=== PATIENT | male | born 1995 | race African-American/Black ===

== ENCOUNTER 2017-07-10 16:38 | Emergency (ER) | payer OTHER ==
[~2017-07-10] VITALS: Ht 162.6 cm; Wt 63.5 kg
[2017-07-10 16:50] VITALS: BP 150/70
[2017-07-10] MEDS ORDERED: DIPHTH,PERTUSS(ACELL),TET TOX 0.5 ML DISP.SYRIN. VAX IM ONE (17:15)
[2017-07-10] MEDS ORDERED: SULF1TAB24 PO (17:36)
[2017-07-10] MEDS ORDERED: ACET-704 PO (17:36)
--- NOTE | 2017-07-10 17:36 | PHYS DOC ---
Past Medical History Past Medical History: No Pertinent History Past Surgical History: No Surgical History Alcohol Use: Occasionally Drug Use: Marijuana Adult General Chief Complaint Chief Complaint: ABSCESS HPI HPI Patient is a 22 year old male who presents with right buttock abscess that began yesterday. Patient denies any fever. Denies any drainage from the area. Review of Systems Review of Systems Constitutional: see history of present illness Musculoskeletal: Denies back pain or joint pain [] Integument: right buttock abscess Neurologic: Denies headache, focal weakness or sensory changes [] Current Medications Current Medications Current Medications Medications (Trade) Dose Ordered Sig/Teena Start Time Stop Time Status Last Admin Dose Admin Diphtheria/ Tetanus/Acell Pertussis (Boostrix) 0.5 ml ONCE ONCE 07/10/17 17:15 07/10/17 17:16 DC 07/10/17 17:18 0.5 ML Allergies Allergies Allergies Coded Allergies Type Severity Reaction Last Updated Verified No Known Drug Allergies 07/10/17 No Physical Exam Physical Exam Constitutional: Well developed, well nourished, no acute distress, non-toxic appearance. [] Skin: Warm, dry, right inner buttock with none indurated area approximately 1 x 1 cm. The area has no fluctuance. The area is erythematous and TTP, the area is warm to touch. Back: No tenderness, no CVA tenderness. [] Extremities: No tenderness, no cyanosis, no clubbing, ROM intact, no edema. [] Neurologic: Alert and oriented X 3, normal motor function, normal sensory function, no focal deficits noted. [] Psychologic: Affect normal, judgement normal, mood normal. [] Current Patient Data Vital Signs Vital Signs Date Time Temp Pulse Resp B/P (MAP) Pulse Ox O2 Delivery O2 Flow Rate FiO2 07/10/17 16:50 99.8 82 20 98 Room Air 99.8 EKG EKG [] Radiology/Procedures Radiology/Procedures [] Course & Med Decision Making Course & Med Decision Making Pertinent Labs and Imaging studies reviewed. (See chart for details) Patient has an abscess to the right buttocks that is not ready to be drained. Discharged Bactrim for 10 days. Discharged Bactroban. Follow-up with PCP in 1-2 weeks. Warm compresses recommended to the area. Tetanus was updated. Dragon Disclaimer Dragon Disclaimer This electronic medical record was generated, in whole or in part, using a voice recognition dictation system. Departure Departure Impression: Primary Impression: Abscess of right buttock Disposition: 01 HOME, SELF-CARE Condition: STABLE Referrals: NO PCP (PCP) FÁTIMA FOLEY MD follow up in one week Patient Instructions: Abscess, Care After Additional Instructions: You were seen for an abscess on your right buttock. Keep the area clean and dry. Apply warm compresses to the area twice a day. Complete the prescribed antibiotics. Follow up with the provided doctor or your own doctor in 1-2 weeks. Please return to the emergency room if symptoms worsen. Scripts Mupirocin Calcium (BACTROBAN CREAM) 15 Gm Cream..g. 1 GARRISON TP TID, #30 GM Prov: RADHA MEDINA APRN 07/10/17 Acetaminophen With Codeine (TYLENOL WITH CODEINE #3 TABLET) 1 Each Tablet 1 TAB PO PRN Q6HRS Y for PAIN, #30 TAB Prov: RADHA MEDINA APRN 07/10/17 Sulfamethoxazole/Trimethoprim (BACTRIM DS TABLET) 1 Each Tablet 1 TAB PO BID, #20 TAB Prov: RADHA MEDINA APRN 07/10/17 RADHA MEDINA APRN Jul 10, 2017 17:36
[2017-07-10] MEDS ORDERED: MUPI15CR TP (17:38)
== END 2017-07-10 17:43 | disposition home or self-care (01) ==
LOC: ER 16:38
DX: L02.31 Cutaneous abscess of buttock (principal)
CPT/HCPCS: 90471; 90715; 99283-25

== ENCOUNTER 2020-10-29 01:32 | Emergency (ER) | payer SELFPAY ==
[~2020-10-29] VITALS: Ht 165.1 cm; Wt 90.0 kg
[~2020-10-29 01:32] MED LIST: ACET-704 PO; MUPI15CR TP; SULF1TAB24 PO
[2020-10-29] MEDS ORDERED: HALOPERIDOL LACTATE 5 MG/ML VIAL. IVP ONE (02:30)
[2020-10-29] MEDS ORDERED: diphenhydrAMINE 50 MG/ML VIAL IVP ONE (02:30)
[2020-10-29] MEDS ORDERED: GELATIN SPONGE SIZE 12-7MM SPONGE. ONE (02:36)
[2020-10-29 03:56] VITALS: BP 104/50
--- NOTE | 2020-10-29 05:10 | ED.ADGEN ---
Past Medical History Past Medical History: No Pertinent History Past Surgical History: No Surgical History Smoking Status: Current Every Day Smoker Alcohol Use: Heavy Drug Use: Marijuana General Adult EDM: Chief Complaint: LACERATION/AVULSION HPI: HPI: Patient is a 25-year-old male coming in for a laceration to his left wrist after punching a glass window. Patient is combative. Per mom patient is been drinking but denies any drug use. Patient is bleeding heavily and being combative with staff. Patient needed to be restrained and sedated to facilitate his stabilization and safety of staff. Review of Systems: Review of Systems: Constitutional: Denies fever or chills. [] Eyes: Denies change in visual acuity. [] HENT: Denies nasal congestion or sore throat. [] Respiratory: Denies cough or shortness of breath. [] Cardiovascular: Denies chest pain or edema. [] GI: Denies abdominal pain, nausea, vomiting, bloody stools or diarrhea. [] : Denies dysuria. [] Musculoskeletal: Denies back pain or joint pain. [] Integument: Denies rash. [] Neurologic: Denies headache, focal weakness or sensory changes. [] Endocrine: Denies polyuria or polydipsia. [] Lymphatic: Denies swollen glands. [] Psychiatric: Denies depression or anxiety. [] Current Medications: Current Medications Medications (Trade) Dose Ordered Sig/Teena Start Time Stop Time Status Last Admin Dose Admin Diphenhydramine HCl (Benadryl) 50 mg 1X ONCE 10/29/20 02:30 10/29/20 02:31 DC 10/29/20 02:13 50 MG Gelatin (Gelfoam Size 12-7mm) 1 each STK-MED ONCE 10/29/20 02:36 10/29/20 02:37 DC Haloperidol Lactate (Haldol Inj) 5 mg 1X ONCE 10/29/20 02:30 10/29/20 02:31 DC 10/29/20 02:13 5 MG Lorazepam (Ativan Inj) 2 mg 1X ONCE 10/29/20 02:30 10/29/20 02:31 DC 10/29/20 02:13 2 MG Allergies: Allergies: Allergies Coded Allergies Type Severity Reaction Last Updated Verified No Known Drug Allergies 07/10/17 No Physical Exam: PE: Constitutional: Well developed, well nourished, no acute distress, non-toxic appearance. [] HENT: Normocephalic, atraumatic, bilateral external ears normal, oropharynx moist, no oral exudates, nose normal. [] Eyes: PERRLA, EOMI, conjunctiva normal, no discharge. [] Neck: Normal range of motion, no tenderness, supple, no stridor. [] Cardiovascular:Heart rate regular rhythm, no murmur [] Lungs & Thorax: Bilateral breath sounds clear to auscultation [] Abdomen: Bowel sounds normal, soft, no tenderness, no masses, no pulsatile masses. [] Skin: Warm, dry, no erythema, no rash. [] Back: No tenderness, no CVA tenderness. [] Extremities: No tenderness, no cyanosis, no clubbing, ROM intact, no edema. [] Neurologic: Alert and oriented X 3, normal motor function, normal sensory function, no focal deficits noted. [] Psychologic: Affect normal, judgement normal, mood normal. [] Current Patient Data: Vital Signs: Vital Signs Date Time Temp Pulse Resp B/P (MAP) Pulse Ox O2 Delivery O2 Flow Rate FiO2 10/29/20 01:40 98.1 110 16 146/93 (110) 98 Room Air 98.1 EKG: EKG: [] Heart Score: Risk Factors: Risk Factors: DM, Current or recent (<one month) smoker, HTN, HLP, family history of CAD, obesity. Risk Scores: Score 0 - 3: 2.5% MACE over next 6 weeks - Discharge Home Score 4 - 6: 20.3% MACE over next 6 weeks - Admit for Clinical Observation Score 7 - 10: 72.7% MACE over next 6 weeks - Early Invasive Strategies Radiology/Procedures: Radiology/Procedures: Indication: 6 cm wound left wrist and small superficial 1 cm wound to left forearm Procedure: The patient was placed in the appropriate position and anesthesia around the was not placed Area was then cleaned and irrigated thoroughly with normal saline.]. The laceration was stapled with 14 mario. No complications and hemostasis achieved the wound area was then dressed with nonadherent dressing. Total repaired wound length: 7 cm. Other Items: Entire depth of wound probed, and subcutaneous tissue approximately 1 cm partial fascia visible but does not appear violated The patient tolerated the procedure after sedated]. Complications: None.[] Course & Med Decision Making: Course & Med Decision Making Patient observed after sedation until he was awake and alert. Discharged with mother. [] Dragon Disclaimer: Dragon Disclaimer: This electronic medical record was generated, in whole or in part, using a voice recognition dictation system. Departure Departure Impression: Primary Impression: Agitation requiring sedation protocol Additional Impression: Laceration of left wrist Disposition: 01 DC HOME SELF CARE/HOMELESS Condition: STABLE Referrals: NO PCP (PCP) Patient Instructions: Staple Wound Closure, [id number] Additional Instructions: Have mario removed in 10 to 14 days Problem Qualifiers HUSSEIN NUGENT MD Oct 29, 2020 05:10
== END 2020-10-29 07:04 | disposition home or self-care (01) ==
LOC: ER 01:32
DX: S61.512A Laceration without foreign body of left wrist, initial encounter (principal); R45.1 Restlessness and agitation; F12.90 Cannabis use, unspecified, uncomplicated; F17.200 Nicotine dependence, unspecified, uncomplicated; F10.10 Alcohol abuse, uncomplicated; W25.XXXA Contact with sharp glass, initial encounter; Y93.89 Activity, other specified; Y92.89 Other specified places as the place of occurrence of the external cause; Y99.8 Other external cause status
CPT/HCPCS: 12002; 96374; 96375; 99285; J1200; J1630; J2060

== ENCOUNTER 2020-11-17 12:24 | Emergency (ER) | payer SELFPAY ==
[~2020-11-17] VITALS: Ht 165.1 cm; Wt 59.6 kg
[2020-11-17 12:35] VITALS: BP 127/61
--- NOTE | 2020-11-17 12:40 | ED.ADGEN ---
Past Medical History Past Medical History: No Pertinent History Past Surgical History: No Surgical History Smoking Status: Current Every Day Smoker Alcohol Use: Heavy Drug Use: Marijuana General Adult EDM: Chief Complaint: SUTURE/STAPLE REMOVAL HPI: HPI: Patient is a 25-year-old male who arrives ambulatory to the emergency department seeking staple removal. Patient had mario applied to his left forearm 16 days previously for laceration sustained after falling while intoxicated. Patient reports he has been fine and does not have complaints otherwise. He is awake, alert and nontoxic-appearing. Review of Systems: Review of Systems: Constitutional: Denies fever or chills. [] Eyes: Denies change in visual acuity. [] HENT: Denies nasal congestion or sore throat. [] Respiratory: Denies cough or shortness of breath. [] Cardiovascular: Denies chest pain or edema. [] GI: Denies abdominal pain, nausea, vomiting, bloody stools or diarrhea. [] : Denies dysuria. [] Musculoskeletal: Denies back pain or joint pain. [] Integument: Laceration with mario present. Denies rash. [] Neurologic: Denies headache, focal weakness or sensory changes. [] Endocrine: Denies polyuria or polydipsia. [] Lymphatic: Denies swollen glands. [] Psychiatric: Denies depression or anxiety. [] Allergies: Allergies: Allergies Coded Allergies Type Severity Reaction Last Updated Verified No Known Drug Allergies 07/10/17 No Physical Exam: PE: Constitutional: Well developed, well nourished, no acute distress, non-toxic appearance. [] HENT: Normocephalic, atraumatic, bilateral external ears normal, oropharynx moist, no oral exudates, nose normal. [] Eyes: PERRLA, EOMI, conjunctiva normal, no discharge. [] Neck: Normal range of motion, no tenderness, supple, no stridor. [] Cardiovascular:Heart rate regular rhythm, no murmur [] Lungs & Thorax: Bilateral breath sounds clear to auscultation [] Abdomen: Bowel sounds normal, soft, no tenderness, no masses, no pulsatile masses. [] Skin: Patient has mario present with a well-healing laceration. There is no drainage or surrounding erythema present. Back: No tenderness, no CVA tenderness. [] Extremities: No tenderness, no cyanosis, no clubbing, ROM intact, no edema. [] Neurologic: Alert and oriented X 3, normal motor function, normal sensory function, no focal deficits noted. [] Psychologic: Affect normal, judgement normal, mood normal. [] Current Patient Data: Vital Signs: Vital Signs Date Time Temp Pulse Resp B/P (MAP) Pulse Ox O2 Delivery O2 Flow Rate FiO2 11/17/20 12:35 97.2 55 16 127/61 (83) 99 Room Air 97.2 EKG: EKG: [] Heart Score: Risk Factors: Risk Factors: DM, Current or recent (<one month) smoker, HTN, HLP, family history of CAD, obesity. Risk Scores: Score 0 - 3: 2.5% MACE over next 6 weeks - Discharge Home Score 4 - 6: 20.3% MACE over next 6 weeks - Admit for Clinical Observation Score 7 - 10: 72.7% MACE over next 6 weeks - Early Invasive Strategies Radiology/Procedures: Radiology/Procedures: The patient had 14 mario removed without difficulty or incident. Course & Med Decision Making: Course & Med Decision Making Pertinent Labs and Imaging studies reviewed. (See chart for details) [] Dragon Disclaimer: Dragon Disclaimer: This electronic medical record was generated, in whole or in part, using a voice recognition dictation system. Departure Departure Impression: Primary Impression: Removal of mario Disposition: 01 DC HOME SELF CARE/HOMELESS Condition: GOOD Referrals: NO PCP (PCP) Patient Instructions: Staple Removal, Care After MAX COLEMAN DO Nov 17, 2020 12:40
== END 2020-11-17 12:54 | disposition home or self-care (01) ==
LOC: ER 12:24
DX: S51.812D Laceration without foreign body of left forearm, subsequent encounter (principal); F17.200 Nicotine dependence, unspecified, uncomplicated; F10.20 Alcohol dependence, uncomplicated; Y90.9 Presence of alcohol in blood, level not specified
CPT/HCPCS: 99281